=== PATIENT | female | born 1990 | race Caucasian/White ===

== ENCOUNTER 2019-03-04 14:27 | Emergency (ER) | payer MEDICARE, OTHER, MEDICAID, SELFPAY ==
[2019-03-04 14:33] VITALS: BP 154/96; PULSE 102; RESP 16; TEMP 36.6; O2SAT 98; BMI 57.6
--- NOTE | 2019-03-04 18:18 | ED_ITS ---
HPI - Skin/Abscess/Foreign Bdy General Chief complaint: Skin/Abscess/Foreign Body Stated complaint: rash under left arm pit Time Seen by Provider: 03/04/19 18:15 Source: patient Mode of arrival: Ambulatory Limitations: no limitations History of Present Illness HPI narrative: 28-year-old woman with a erythematous rash that developed under her left arm in the axilla. It's been present for number of days it's itchy not paretic no fevers. Related Data Previous Rx's Medication Instructions Recorded lamotrigine 150 mg PO BID 90 Days #0 07/18/11 nystatin 1 applictn TOP BID #30 gram 03/04/19 Allergies Allergy/AdvReac Type Severity Reaction Status Date / Time No Known Drug Allergies Allergy Verified 03/04/19 14:33 Review of Systems Review of Systems Narrative: Denies ? fever ? cough ? cold ? chills ? chest pain ? dyspnea ? orthopnea ? wheezing ? abdominal pain ? change to bowel or bladder habits ? nausea vomiting Mother with similar symptoms under her breast regularly Patient History Social History Smoking Status: Unknown if ever smoked Smoking Status: Unknown if ever smoked alcohol intake frequency: other Substance Use Type: does not use Exam Narrative Exam Narrative: General: Alert appropriate in no acute distress, morbidly obese Respiratory: Able to speak in full sentences, no obvious respiratory distress Skin: Moist axilla with erythematous rash in the folds consistent with Vivi Neurologic: Grossly intact no obvious asymmetries or abnormalities Psych, appropriate insight and affect, cooperative Initial Vital Signs Initial Vital Signs: Vital Signs Temperature 97.8 F 03/04/19 14:33 Pulse Rate 102 H 03/04/19 14:33 Respiratory Rate 16 03/04/19 14:33 Blood Pressure 154/96 H 03/04/19 14:33 Pulse Oximetry 98 03/04/19 14:33 Course Vital Signs Vital signs: Vital Signs - 8 hr 03/04/19 14:33 Temperature 97.8 F Pulse Rate 102 H Respiratory Rate 16 Blood Pressure 154/96 H Pulse Oximetry 98 Discharge Plan Departure Patient Disposition: Home Clinical Impression: Vivi infection Instructions: DI for Intertrigo Activity Restrictions/Additional Instructions: Thank you for waiting today. This rash is due to Vivi, yeast. Yeast growth anywhere there are moist falls that are warm. Using some nystatin powder after a shower and thoroughly cleaning the area will help clean up the rash. Doing all that you can't keep t he area as dry as possible will help prevent it from coming back. Again, thank you for the long wait. I hope you heal quickly Prescriptions: New nystatin 100,000 unit/gram powder 1 applictn TOP BID Qty: 30 RF: 2 No Action lamotrigine 150 MG tablet 150 mg PO BID 90 Days Qty: 0 RF: 3 Referrals: Carla Pace MD [Primary Care Provider] -
[2019-03-04 18:34] VITALS: PULSE 92; O2SAT 95
== END 2019-03-04 18:34 | disposition home or self-care (01) ==
PROVIDERS: Emergency Provider Emergency Medicine; PCP Internal Medicine
DX: B37.2 Candidiasis of skin and nail (principal)
CPT/HCPCS: 99281; 99283

== ENCOUNTER 2019-08-13 10:14 | Emergency (ER) | payer MEDICARE, OTHER, MEDICAID, SELFPAY ==
[2019-08-13 10:25] VITALS: BP 169/103; PULSE 116; RESP 20; TEMP 37.1; O2SAT 95; BMI 59.0
--- NOTE | 2019-08-13 11:14 | ED_ITS ---
HPI - Skin/Abscess/Foreign Bdy <Dottie Galvan PA-C - Last Filed: 08/13/19 19:14> General Chief complaint: Skin/Abscess/Foreign Body Stated complaint: rash and open wound on lower abdomen Time Seen by Provider: 08/13/19 10:56 Source: patient and family Mode of arrival: Family Vehicle Limitations: no limitations History of Present Illness HPI narrative: This is a morbidly obese developmentally disabled 29-year-old woman who presents to the emergency department with her mother; they are complaining of a open wound on the left side of her abdomen under the fold of her pannus. As well as a rash --patient and mother state that she chronically has a rash under her breast, in her armpits and on her belly (in the folds) which they treat with nystatin powder, however this is the 1st time they have seen an open wound. The patient states that she noticed yesterday morning. She says that it does not hurt. When asked if the patient feels like she normally has a fast heart rate her mother says that she does. Mother and patient denied that she has had fever, shortness of breath, nausea, vomiting, diarrhea, chills, body aches, increased fatigue, lack of appetite or any other symptoms. MD complaint: rash and abscess/boil Onset (ago): day(s) (Abscess 2 days) Tetanus up to date: unsure Severity: moderate Severity scale (1-10): 1 Exacerbating factors: palpation Context: other (Morbidly obese,) Associated symptoms: denies other symptoms Treatments prior to arrival: other (Nystatin cream) Related Data Previous Rx's Medication Instructions Recorded lamotrigine 150 mg PO BID 90 Days #0 07/18/11 nystatin 1 applictn TOP BID #30 gram 03/04/19 doxycycline hyclate 100 mg PO BID #20 cap MDD 200mg 08/13/19 Allergies Allergy/AdvReac Type Severity Reaction Status Date / Time No Known Drug Allergies Allergy Verified 03/04/19 14:33 Review of Systems <Dottie Galvan PA-C - Last Filed: 08/13/19 19:14> Review of Systems Narrative: GENERAL: Denies chills, fatigue, malaise, fever, sweats. HEENT: Denies sinus pain, ear pain, sore throat, difficulty swallowing, dizziness. RESPIRATORY: Denies dyspnea, cough, wheezing, hemoptysis, sputum. CARDIOVASCULAR: Denies chest pain, palpitations, orthopnea, edema, GASTROINTESTINAL: Denies nausea, vomiting, abdominal pain, diarrhea, constipation, melena. : Denies dysuria, frequency, incontinence, hematuria, urinary retention. MUSCULOSKELETAL: denies weakness, joint pain, or bony pain SKIN: Positive for chronic rash under her breasts, sometimes in her armpits and also in the folds of her thighs and under her pannus, positive for small open draining wound on the left side under her pannus Denies other rash, skin lesions, or other NEUROLOGIC: Denies weakness, headache, numbness, change in speech, confusion, seizures, incoordination. PSYCHIATRIC: No concerning psychosocial issues. 12 point review of systems is negative except for those stated above Patient History <Dottie Galvan PA-C - Last Filed: 08/13/19 19:14> Social History Smoking Status: Unknown if ever smoked Smoking Status: Unknown if ever smoked alcohol intake frequency: holidays/special occasions only Substance Use Type: does not use Exam <Dottie Galvan PA-C - Last Filed: 08/13/19 19:14> Narrative Exam Narrative: GENERAL: 29 year old morbidly obese developmentally delayed patient appears stated age. Well-nourished, well-developed patient, in mild distress. HEAD: Atraumatic. Normocephalic. EYES: Pupils equal round and reactive. Extraocular motions intact. No scleral icterus. No injection or drainage. ENT: Nose without bleeding, purulent drainage. Throat without erythema, tonsillar hypertrophy or exudate. Airway patent. NECK: Trachea midline. Non tender CARDIOVASCULAR: rapid rate and rhythm (106) without murmurs, gallops, or rubs. RESPIRATORY: Clear to auscultation. Breath sounds equal bilaterally. No wheezes, rales, or rhonchi. GASTROINTESTINAL: Abdomen protuberant with large pannus soft, non-tender, nondistended. EXTREMITIES: No edema or joint tenderness. BACK: Nontender without deformity or crepitance. No flank tenderness. NEURO: AOx3. SKIN: There is a candidal appearing (erythematous with satellite lesions) mil [id number] rash in the fold of the pannus; on the left side on the superior portion of the pannus there is a approximately 2 horizontal by 1 in vertical area that is firm and suggestive of a non fluctuant abscess with centralized (approximately 1 cm) opening and a mild amount of discharge that is pale yellowish in color . The entire area has a smell consistent with a candidal infection. The area around the opening is cleansed with Hibiclens and a bacterial culture swab is inserted into the opening; the depth of the abscess is probed in all directions and appears to be no deeper than 1/2 inch into the subcutaneous fatty tissue without any apparent tunneling. No other rash or erythema of visualized areas Initial Vital Signs Initial Vital Signs: Vital Signs Temperature 98.7 F 08/13/19 10:25 Pulse Rate 116 H 08/13/19 10:25 Respiratory Rate 08/13/19 10:25 Blood Pressure 169/103 H 08/13/19 10:25 Pulse Oximetry 95 08/13/19 10:25 <Rambo Mayo MD - Last Filed: 08/14/19 07:28> Initial Vital Signs Initial Vital Signs: Vital Signs Temperature 98.7 F 08/13/19 10:25 Pulse Rate 116 H 08/13/19 10:25 Respiratory Rate 08/13/19 10:25 Blood Pressure 169/103 H 08/13/19 10:25 Pulse Oximetry 95 08/13/19 10:25 Scores <Dottie Galvan PA-C - Last Filed: 08/13/19 19:14> GCS Giovani coma scale eye opening: Spontaneous Giovani coma scale verbal response: Orientated [place] coma scale motor response: Obey commands [place] coma scale total score: 15 Course <Dottie Galvan PA-C - Last Filed: 08/13/19 19:14> Orders Ordered: ED Orders 08/13/19 11:30 Wound Culture and Gram Stain Stat Vital Signs Vital signs: Vital Signs - 8 hr 08/13/19 11:50 Temperature 98.3 F Pulse Rate 104 H Respiratory Rate 19 Blood Pressure 179/97 H Pulse Oximetry 97 <Rambo Mayo MD - Last Filed: 08/14/19 07:28> Orders Ordered: ED Orders 08/13/19 11:30 Wound Culture and Gram Stain Stat Vital Signs Vital signs: Vital Signs - 8 hr 08/13/19 11:50 Temperature 98.3 F Pulse Rate 104 H Respiratory Rate 19 Blood Pressure 179/97 H Pulse Oximetry 97 [facility] - Skin/Abscess/Foreign Bdy <Dottie Galvan PA-C - Last Filed: 08/13/19 19:14> Differential Diagnosis Differential diagnosis: Likely abscess of skin or subcutaneous tissue, cellulitis and other (Systemic infection, candidiasis) Medical Records Attestation: I reviewed the patient's medical records. Lab Data Attestation: I reviewed the patient's lab results. [facility] Narrative Medical decision making narrative: This is a 29-year-old morbidly obese developmentally disabled woman who presented to the emergency department with her mother complaining of a ?hole? in her belly that was draining. Differential diagnoses considered included, candidiasis, abscess, cellulitis, sepsis While the patient was mildly tachycardic throughout the hospital stay, she had no other signs/symptoms suggestive of systemic infection, and I have low suspicion for this. Labs were not obtained. Ultrasound was considered to further characterize the abscess however I felt comfortable based on exam and bacterial swab/culture collection. That this draining abscess most likely does not invade anything other than subcutaneous fat. Bacterial culture pending at time of discharge. Given the patient's body habitus the chronic issues with candidiasis in the current draining abscess present in her subcutaneous fat tissue of her abdomen I do think that is warranted for her to see wound care for follow-up for this and to work with her to prevent similar such infections in the future. She was also prescribed antibiotics orally and advised to follow-up with her primary care physician in the next 1-3 days she and her mother were also provided with emergency return precautions. All questions were answered. Discharge Plan Departure Patient Disposition: Home Clinical Impression: Abscess, abdomen, Vivi albicans infection Discharge Date/Time: 08/13/19 12:17 Instructions: DI for Wound Infection, DI for Skin Abscess, Yeast Infection-Skin Activity Restrictions/Additional Instructions: Thank you for letting us to be part of your care in the emergency department today. There is no evidence of an emergent or life threatening illness at this time, but follow up with your doctor in 1-2 days is recommended nonetheless to continue to rule out serious underlying causes of your symptoms. Please call the office for an appointment. Please return to the Emergency Department for any worsening or persistent symptoms. Please take medications as directed. You have been prescribed doxycycline which she should take twice a day for 10 days, I have provided paper prescription for this. It is very important that he pay close attention to her symptoms, keep the area clean and dry and take her medications as directed. You can continue to use the nystatin powder in the adjacent areas. You will see that I have referred you to see your primary care doctor as well as a bioinformatics specialist and you can call them regarding setting up an appointment. If you do develop increasing pain, redness, heat in the area your abscess, and/or fever, chills, nausea, vomiting, diarrhea or increased fatigue or any other symptoms of concern do not hesitate to seek medical care immediately. Prescriptions: New doxycycline hyclate 100 mg capsule 100 mg PO BID MDD 200mg Qty: 20 RF: 0 No Action lamotrigine 150 MG tablet 150 mg PO BID 90 Days Qty: 0 RF: 3 nystatin 100,000 unit/gram powder 1 applictn TOP BID Qty: 30 RF: 2 Referrals: Gary Sanches MD [Physician] - (Draining abscess of pannus--would benefit from wound care) Carrol Tatum DO [Primary Care Provider] -
--- NOTE | 2019-08-13 11:45 | PC.NURSE ---
pT USES NYSTATIN FOR FUNGAL GROWTH TO ABD/PELVIC FOLDS
[2019-08-13 11:50] VITALS: BP 179/97; PULSE 104; RESP 19; TEMP 36.8; O2SAT 97
== END 2019-08-13 12:17 | disposition home or self-care (01) ==
PROVIDERS: Emergency Provider Student in an Organized Health Care Education/Training Program; PCP Family Medicine
DX: L02.211 Cutaneous abscess of abdominal wall (principal); B37.2 Candidiasis of skin and nail; E66.01 Morbid (severe) obesity due to excess calories
CPT/HCPCS: 87070; 87077; 87147; 87205; 99282

== ENCOUNTER → 2019-08-23 10:29 | Outpatient (CLI) | payer MEDICARE, OTHER, MEDICAID, SELFPAY | PROVIDERS: PCP Family Medicine; Referring Provider Family Medicine; Visit Provider Family Medicine | DX: Z48.00 Encounter for change or removal of nonsurgical wound dressing (principal); L30.4 Erythema intertrigo | CPT/HCPCS: 99203; 99213 ==

== ENCOUNTER 2019-11-21 12:14 | Emergency (ER) | payer MEDICARE, OTHER, MEDICAID, SELFPAY ==
[2019-11-21] VITALS (15 sets, daily range): BP systolic 135–176; BP diastolic 65–102; PULSE 86–104; RESP 18–19; TEMP 36.8; O2SAT 96–100; BMI 58.3
[2019-11-21] MEDS: PANTOPRAZOLE 40 MG VIAL IV (13:35)
[2019-11-21] MEDS: KETOROLAC 60 MG/2 ML VIAL 15 MG IV (13:35)
[2019-11-21] MEDS: SODIUM CHLORIDE 0.9% 1,000 ML 1000 ML IV (13:35)
[2019-11-21] MEDS: ONDANSETRON 4 MG/2 ML INJ IV (13:35)
--- NOTE | 2019-11-21 13:51 | ED_ITS ---
HPI - Nausea/Vomiting/Diarrhea <NELLIE Suárez - Last Filed: 11/21/19 18:03> General Chief complaint: Abdominal Pain Stated complaint: vomiting, lightheadedness Time Seen by Provider: 11/21/19 12:33 Source: patient Mode of arrival: Family Vehicle Limitations: no limitations History of Present Illness HPI Narrative: This is a 29-year-old female, nonsmoker, who has history of diabetes, hypertension, seizure disorder presents to ED with mother with chief complain of vomiting constantly since this morning with lightheadedness. Patient denies chest pain, breathing difficulty, or fainting episodes. Mother states she had vomited about 5 times this morning with coffee looking fluid. Patient had food and coffee this morning. Denies bright red blood or coffee- grounds emesis. She denies bright rectal bleeding or tarry stools. Patient reports generalized abdominal pain with this and rates as 4/10 and describes as cramping. He denies fever but mild chills. She denies urinary symptoms such as urgency, frequency, dysuria, or hematuria. Unsure of LMP and is on Depo shot an d usually does not get menses regularly. Patient denies unusual vaginal discharge or pelvic pain. Last bowel movement was today which was little loose but no diarrheas. Mother reports patient is currently taking metformin which was increased from 500 mg to 1000 mg 6 days ago. She had been having intermittent nausea and vomiting since September this year when she started taking metformin. Related Data Previous Rx's Medication Instructions Recorded lamotrigine 150 mg PO BID 90 Days #0 07/18/11 nystatin 1 applictn TOP BID #30 gram 03/04/19 doxycycline hyclate 100 mg PO BID #20 cap MDD 200mg 08/13/19 Allergies Allergy/AdvReac Type Severity Reaction Status Date / Time No Known Drug Allergies Allergy Verified 03/04/19 14:33 Review of Systems <NELLIE Suárez - Last Filed: 11/21/19 18:03> Review of Systems Narrative: General: Denies fever, (+) chills, fatigue, malaise, sweats. HEENT: Denies sinus pain, ear pain, sore throat, difficulty swallowing, (+) dizziness. Respiratory: Denies dyspnea, cough, wheezing, hemoptysis, sputum. Cardiovascular: Denies chest pain, palpitations, orthopnea, edema. Gastrointestinal: See HPI : Denies dysuria, frequency, incontinence, hematuria, urinary retention. Musculoskeletal: Denies weakness, joint pain or bony pain. Skin: Denies rash, skin lesions, or other. Neurologic: Denies weakness, headache, numbness, change in speech, confusion, seizures, incoordination. Psychiatric: No concerning psychosocial issues. 12-point review of systems is negative except for those stated above. Patient History <NELLIE Suárez - Last Filed: 11/21/19 18:03> Medical History Diabetes (Acute) Hypertension (Acute) Obese (Acute) Pilonidal cyst (Acute) Seizures (Acute) Surgical History History of ankle surgery (Acute) Social History Smoking Status: Unknown if ever smoked Smoking Status: Unknown if ever smoked alcohol intake frequency: holidays/special occasions only Substance Use Type: does not use Exam <NELLIE Suárez - Last Filed: 11/21/19 18:03> Narrative Exam Narrative: GEN: Alert, oriented x 3, well appearing and obese female in no acute distress. Head: Normal cephalic, atraumatic. No scalp or temporal tenderness, palpable mass or rash. EYES: Pupils are equal, round, and reactive to light and accommodation. Extraocular muscles are intact bilaterally. There is no subconjunctival hemorrhage, exudate and sclera non-icteric. ENT: Hearing grossly intact. Nose without bleeding, purulent discharge or deviation. Mucous membrane dry, no mucosal lesion. Throat without erythema, tonsillar hypertrophy or exudate. Uvula in midline, airway patent. Neck: Trachea in midline. No JVD, non-tender without lymphadenopathy. No masses or thyroid megaly. Supple, non-tender and no meningeal signs. CARDIAC: Normal regular rate and rhythm without murmurs, gallops, or rubs. No chest wall tenderness. No peripheral edema, cyanosis or pallor. Capillary refill is less than 2 seconds. RESPIRATORY: Lungs are clear to auscultate bilaterally. No cough, wheezes, rales, or rhonchi. No stridor, respiratory distress, increase work of breathing, or accessary muscle used. ABD: Abdomen obese, soft, tender to palpate in 4 quadrants and non-distended. No guarding or rebound tenderness to palpate. Bowel sounds are normal in all 4 quadrants. There is no palpable masses or organomegaly. EXT: Full painless ROM of all extremities with no loss of sensation, strength, effusion or edema. SKIN: Warm, dry, normal color for patient. No erythema, lesions or rash over visible areas. BACK: Nontender without deformity or crepitance. No flank tenderness. NEUROLOGICAL: Alert and oriented to place, time and person. Sensation and motor function intact bilaterally. No facial droops, dysphasia. PSYCHIATRIC: Good judgement and reason, without hallucinations, abnormal affect or abnormal behaviors during the examination. Patient is not suicidal. Initial Vital Signs Initial Vital Signs: Vital Signs Temperature 98.2 F 11/21/19 12:49 Pulse Rate 104 H 11/21/19 12:49 Respiratory Rate 18 11/21/19 12:49 Blood Pressure 176/102 H 11/21/19 12:49 Pulse Oximetry 100 11/21/19 12:49 <Carly Doran DO - Last Filed: 11/27/19 18:21> Initial Vital Signs Initial Vital Signs: Vital Signs Temperature 98.2 F 11/21/19 12:49 Pulse Rate 104 H 11/21/19 12:49 Respiratory Rate 18 11/21/19 12:49 Blood Pressure 176/102 H 11/21/19 12:49 Pulse Oximetry 100 11/21/19 12:49 Scores <NELLIE Suárez - Last Filed: 11/21/19 18:03> GCS Giovani coma scale eye opening: Spontaneous Giovani coma scale verbal response: Orientated Giovani coma scale motor response: Obey commands Giovani coma scale total score: 15 Course <NELLIE Suárez - Last Filed: 11/21/19 18:03> Orders Ordered: Discontinued Medications Sodium Chloride (Normal Saline 0.9%) 1,000 mls @ 1,000 mls/hr IV BOLUS ONE Stop: 11/21/19 14:12 Last Infusion: 11/21/19 14:35 Dose: 0 mls/hr Documented by: Admin: 11/21/19 13:35 Dose: 1,000 mls/hr Documented by: FRED Sodium Chloride (Normal Saline 0.9%) 1,000 mls @ 125 mls/hr IV CONT RENETTA Last Infusion: 11/21/19 18:01 Dose: 0 mls/hr Documented by: Admin: 11/21/19 16:09 Dose: 125 mls/hr Documented by: FRED Ketorolac Tromethamine (Toradol) 15 mg IV NOW ONE Stop: 11/21/19 13:15 Last Admin: 11/21/19 13:35 Dose: 15 mg Documented by: FRED Ondansetron HCl (Zofran) 4 mg IV NOW ONE Stop: 11/21/19 13:14 Last Admin: 11/21/19 13:35 Dose: 4 mg Documented by: FRED Ondansetron HCl (Zofran Odt Prepack) 1 bottle MISC SEEINSTR ONE Stop: 11/21/19 17:51 Last Admin: 11/21/19 18:03 Dose: 1 bottle Documented by: FRED Pantoprazole Sodium (Protonix) 40 mg IV NOW ONE Stop: 11/21/19 13:15 Last Admin: 11/21/19 13:35 Dose: 40 mg Documented by: FRED Reevaluation(s) Reevaluation #1: Patient reports abdominal pain improved and feels hungry. solids control technician Krysta came to inform as CT was done with IV contrast but does not appears to be contrast is in her system. Right arm IV site verified. Patient denies pain. No obvious swelling appreciated due to patient's large body habitus. No obvious coolness or redness noted. IV is flushing very well without any res istance. Cool pack applied in case patient has swelling. Will wait for CT results. Time: 15:50 Reevaluation #2: Patient was able to tolerate clear liquid and crackers without vomiting. Reports abdominal pain improved. No signs of extravasation of fluid on right arm. No swelling, redness, pain appreciated. Time: 17:54 Vital Signs Vital signs: Vital Signs - 8 hr 11/21/19 12:49 11/21/19 13:46 11/21/19 13:50 Temperature 98.2 F Pulse Rate 104 H 100 H 97 H Respiratory Rate 18 Blood Pressure 176/102 H 156/90 H Pulse Oximetry 100 97 99 11/21/19 13:51 11/21/19 14:00 11/21/19 14:30 Temperature Pulse Rate 92 H 95 H 87 Respiratory Rate Blood Pressure 156/90 H Pulse Oximetry 100 99 97 11/21/19 14:59 11/21/19 15:00 11/21/19 16:15 Temperature Pulse Rate 92 H 91 H 92 H Respiratory Rate 19 Blood Pressure 140/75 140/75 Pulse Oximetry 96 97 96 11/21/19 16:16 11/21/19 17:09 11/21/19 17:12 Temperature Pulse Rate 92 H 94 H 95 H Respiratory Rate Blood Pressure 140/67 146/65 H Pulse Oximetry 96 96 99 11/21/19 17:30 Temperature Pulse Rate 86 Respiratory Rate Blood Pressure Pulse Oximetry 96 <Carly Doran, - Last Filed: 11/27/19 18:21> Orders Ordered: Discontinued Medications Sodium Chloride (Normal Saline 0.9%) 1,000 mls @ 1,000 mls/hr IV BOLUS ONE Stop: 11/21/19 14:12 Last Infusion: 11/21/19 14:35 Dose: 0 mls/hr Documented by: Admin: 11/21/19 13:35 Dose: 1,000 mls/hr Documented by: FRED Sodium Chloride (Normal Saline 0.9%) 1,000 mls @ 125 mls/hr IV CONT RENETTA Last Infusion: 11/21/19 18:01 Dose: 0 mls/hr Documented by: Admin: 11/21/19 16:09 Dose: 125 mls/hr Documented by: FRED Ketorolac Tromethamine (Toradol) 15 mg IV NOW ONE Stop: 11/21/19 13:15 Last Admin: 11/21/19 13:35 Dose: 15 mg Documented by: FRED Ondansetron HCl (Zofran) 4 mg IV NOW ONE Stop: 11/21/19 13:14 Last Admin: 11/21/19 13:35 Dose: 4 mg Documented by: FRED Ondansetron HCl (Zofran Odt Prepack) 1 bottle MISC SEEINSTR ONE Stop: 11/21/19 17:51 Last Admin: 11/21/19 18:03 Dose: 1 bottle Documented by: FRED Pantoprazole Sodium (Protonix) 40 mg IV NOW ONE Stop: 11/21/19 13:15 Last Admin: 11/21/19 13:35 Dose: 40 mg Documented by: FRED Vital Signs Vital signs: Vital Signs - 8 hr 11/21/19 12:49 11/21/19 13:46 11/21/19 13:50 Temperature 98.2 F Pulse Rate 104 H 100 H 97 H Respiratory Rate 18 Blood Pressure 176/102 H 156/90 H Pulse Oximetry 100 97 99 11/21/19 13:51 11/21/19 14:00 11/21/19 14:30 Temperature Pulse Rate 92 H 95 H 87 Respiratory Rate Blood Pressure 156/90 H Pulse Oximetry 100 99 97 11/21/19 14:59 11/21/19 15:00 11/21/19 16:15 Temperature Pulse Rate 92 H 91 H 92 H Respiratory Rate 19 Blood Pressure 140/75 140/75 Pulse Oximetry 96 97 96 11/21/19 16:16 11/21/19 17:09 11/21/19 17:12 Temperature Pulse Rate 92 H 94 H 95 H Respiratory Rate Blood Pressure 140/67 146/65 H Pulse Oximetry 96 96 99 11/21/19 17:30 Temperature Pulse Rate 86 Respiratory Rate Blood Pressure Pulse Oximetry 96 MDM - Nausea/Vomiting/Diarrhea <NELLIE Suárez - Last Filed: 11/21/19 18:03> Differential Diagnosis Differential diagnosis: Likely gastroenteritis, drug-induced nausea and vomiting, dehydration and other (Pancreatitis) Medical Records Attestation: I reviewed the patient's medical records. Lab Data Attestation: I reviewed the patient's lab results. Result diagrams: 11/21/19 13:48 11/21/19 13:48 Labs: Lab Results 11/21/19 11/21/19 11/21/19 Range/Units 13:48 13:48 13:48 WBC 12.1 H (4.5-11.0) X10^3/uL RBC 5.25 H (4.0-5.2) X10^6/uL Hgb 14.9 (12.0-16.0) g/dL Hct 44.1 (36-46) % MCV 84.1 (80-100) fL MCH 28.4 (26-34) PG MCHC 33.7 (30-36) % RDW 14.0 (11.6-14.8) % Plt Count 407 H (150-400) X10^3/uL Neut % (Auto) 83.4 H (50-75) % Lymph % (Auto) 11.0 L (25-40) % [place] % (Auto) 4.4 (3-14) % Eos % (Auto) 0.6 L (2-4) % Baso % (Auto) 0.6 (0-2) % Neut # (Auto) 39616 H (8695-8304) /uL Lymph # (Auto) 1300 (5269-7325) /uL [place] # (Auto) 500 (0-900) /uL Eos # (Auto) 100 (0-450) /uL Baso # (Auto) 100 (0-100) /uL Sodium 136 L (137-145) mmol/L Potassium 5.0 (3.4-5.1) mmol/L Chloride 102 (98-107) mmol/L Carbon Dioxide 28 (22-32) mmol/L BUN 8 (7-17) mg/dL Creatinine 0.46 L (0.52-1.04) mg/dL Estimated GFR > 60.0 (>60) mL/min BUN/Creatinine Ratio 17.4 (6-22) Glucose 249 H (70-100) mg/dL Lactate 1.8 (0.7-2.1) mmol/L Calcium 9.7 (8.4-10.2) mg/dL Total Bilirubin 0.6 (0.2-1.3) mg/dL AST 32 (14-36) IU/L ALT 39 H (<35) IU/L Alkaline Phosphatase 114 (38-126) U/L Total Protein 8.2 (6.3-8.2) g/dL Albumin 4.4 (3.5-5.0) g/dL Globulin 3.8 (1.7-4.1) g/dL Albumin/Globulin Ratio 1.2 (1.0-2.8) Lipase 88 (23-300) U/L Serum , Qual (Negative) Urine RBC (0-5/HPF) Urine WBC (0-5/HPF) Ur Squamous Epith Cells (0-5/HPF) Amorphous Sediment Urine Bacteria (None) Urine Mucus (Negative) Ur Culture Indicated? 11/21/19 11/21/19 Range/Units 13:48 16:55 WBC (4.5-11.0) X10^3/uL RBC (4.0-5.2) X10^6/uL Hgb (12.0-16.0) g/dL Hct (36-46) % MCV (80-100) fL MCH (26-34) PG MCHC (30-36) % RDW (11.6-14.8) % Plt Count (150-400) X10^3/uL Neut % (Auto) (50-75) % Lymph % (Auto) (25-40) % [place] % (Auto) (3-14) % Eos % (Auto) (2-4) % Baso % (Auto) (0-2) % Neut # (Auto) (6332-4104) /uL Lymph # (Auto) (8572-1908) /uL [place] # (Auto) (0-900) /uL Eos # (Auto) (0-450) /uL Baso # (Auto) (0-100) /uL Sodium (137-145) mmol/L Potassium (3.4-5.1) mmol/L Chloride (98-107) mmol/L Carbon Dioxide (22-32) mmol/L BUN (7-17) mg/dL Creatinine (0.52-1.04) mg/dL Estimated GFR (>60) mL/min BUN/Creatinine Ratio (6-22) Glucose (70-100) mg/dL Lactate (0.7-2.1) mmol/L Calcium (8.4-10.2) mg/dL Total Bilirubin (0.2-1.3) mg/dL AST (14-36) IU/L ALT (<35) IU/L Alkaline Phosphatase (38-126) U/L Total Protein (6.3-8.2) g/dL Albumin (3.5-5.0) g/dL Globulin (1.7-4.1) g/dL Albumin/Globulin Ratio (1.0-2.8) Lipase (23-300) U/L Serum , Qual Negative (Negative) Urine RBC None seen (0-5/HPF) Urine WBC 5-10/hpf H (0-5/HPF) Ur Squamous Epith Cells 5-10 /hpf H (0-5/HPF) Amorphous Sediment 2+ Urine Bacteria Many (>30) H (None) Urine Mucus 1+ H (Negative) Ur Culture Indicated? Specimen cultured Point of Care Testing Glucose POC 256 Urine Dip Bedside Urine Glucose 250 mg/dl Bedside Urine Bilirubin - Negative Bedside Urine Ketone - Negative Urine Specific [place] 1.020 Bedside Urine Occult Blood - Negative Bedside Urine pH 6.0 Bedside Urine Protein +/- 15 Bedside Urine Urobilinogen - Negative Bedside Urine Nitrite - Negative Bedside Urine Leukocytes - Negative Esterase Imaging Data CT scan - abdomen/pelvis: Radiologist's Impression: [address] [address] [address] Scan Report Signed Patient: Ana Maria Stanley GMR#: [id number] : 1990Acct:[id number] Age/Sex: 29 / FDate of Service: 11/21/19 Loc: ED Accession Number: [id number] Procedure: CT abdomen pelvis w con Ordering Provider: Arley Golden PROCEDURE: CT ABDOMEN PELVIS W CON INDICATIONS: generalized abdominal pain and n/v TECHNIQUE: After the administration of intravenous contrast, 5 mm thick sections acquired from the diaphragm to the symphysis. 5 mm coronal and sagittal reformats were acquired. For radiation dose reduction, the following was used: automated exposure control, adjustment of mA and/or kV according to patient size. COMPARISON: [facility], CT, ABDOMEN/PELVIS WITH CONTRAST, 04/07/2010, 15:21. FINDINGS: Image quality: Excellent. ABDOMEN: Lung bases: There is minimal dependent atelectasis. Heart size is normal. Solid organs: Evaluation of the liver demonstrates no focal hepatic lesions. The gallbladder appears within normal limits without calcified gallstones. Biliary system is non-dilated. Pancreas enhances normally. No peripancreatic fat stranding or fluid collections. No pancreatic duct dilatation. The spleen is enlarged, measuring up to 15.8 cm. No adrenal nodules. Kidneys demonstrate no hydronephrosis. Peritoneum and bowel: Bowel loops demonstrate normal wall thickness and caliber. The appendix is normal in appearance. There is colonic diverticulosis without acute diverticulitis. No free fluid or air. Nodes and vessels: No retroperitoneal or mesenteric adenopathy by size criteria. Aorta and inferior vena cava are normal in size. Miscellaneous: No ventral hernias. PELVIS: Genitourinary: Bladder wall thickness is normal. Miscellaneous: No inguinal hernias or adenopathy. Bones: No suspicious bony lesions. No vertebral body compression fractures. IMPRESSION: 1. No acute intra-abdominal abnormality. 2. Nonspecific splenomegaly may be constitutional. 3. Colonic diverticulosis without acute diverticulitis. Dictated by: Carl Prince M.D. on 11/21/2019 at 14:45 Approved by: Carl Prince M.D. on 11/21/2019 at 14:49 [facility] Narrative Medical decision making narrative: This is a 29-year-old female who presents to ED with generalized abdominal pain and nausea and vomiting today. Patient is currently taking metformin which has been increased from 500 mg b.i.d. dose to 1000 mg 5 days ago. Patient has been having intermittent abdominal pain with nausea since she started metformin according to mother. Patient is nontoxic appearing. Abdominal physical exam appreciated soft, nondistended, generalized abdominal discomfort to palpate. No rebound tenderness or peritoneal signs. Patient appears to be nontoxic. She is afebrile but slightly tachycardia. Patient was medicated with IV fluid, Zofran and Toradol initially. Patient was reassessed and reports slightly improved symptoms but abdominal pain was not resolved. Given slightly elevated white count of 12.1 with ongoing abdominal pain, abdominal/pelvis CT was ordered and obtained. Chemistry test shows elevated glucose of 249 with ALT of 39. Normal lipase, negative serum test. Very mild hyponatremia of 136. CT show no acute intra-abdominal abnormality. There's colonic diverticulosis without acute diverticulitis. There is nonspecific splenomegaly, may be constitutional. After IV fluid infusion, she was able to provide urine sample. POC urine test does not show nitrites or urine leuks. Microscopic urine test shows postivive for mucus, squamous epithelia cells, urine WBC of 5-10/hpf and many bacteria. Urine culture is pending. In shared decision making, will wait for the urine culture test whether patient needs antibiotic medication treatments. Patient felt improved and was able to tolerate liquid and crackers before discharged to home. Heart rate improved to in 80s. Patient discharged to home with prepack of Zofran. Patient's nausea vomiting may related to recent increase metformin to 1000 mg b.i.d.. We discussed return precautions and patient and mother verbalized understanding. Patient advised to take bland diet for next couple of days to try to hydrate well. No further questions at this time. <Carly Colton Doran, DO - Last Filed: 11/27/19 18:21> Lab Data Labs: Lab Results 11/21/19 11/21/19 11/21/19 Range/Units 13:48 13:48 13:48 WBC 12.1 H (4.5-11.0) X10^3/uL RBC 5.25 H (4.0-5.2) X10^6/uL Hgb 14.9 (12.0-16.0) g/dL Hct 44.1 (36-46) % MCV 84.1 (80-100) fL MCH 28.4 (26-34) PG MCHC 33.7 (30-36) % RDW 14.0 (11.6-14.8) % Plt Count 407 H (150-400) X10^3/uL Neut % (Auto) 83.4 H (50-75) % Lymph % (Auto) 11.0 L (25-40) % [place] % (Auto) 4.4 (3-14) % Eos % (Auto) 0.6 L (2-4) % Baso % (Auto) 0.6 (0-2) % Neut # (Auto) 91178 H (3552-7511) /uL Lymph # (Auto) 1300 (8282-4158) /uL [place] # (Auto) 500 (0-900) /uL Eos # (Auto) 100 (0-450) /uL Baso # (Auto) 100 (0-100) /uL Sodium 136 L (137-145) mmol/L Potassium 5.0 (3.4-5.1) mmol/L Chloride 102 (98-107) mmol/L Carbon Dioxide 28 (22-32) mmol/L BUN 8 (7-17) mg/dL Creatinine 0.46 L (0.52-1.04) mg/dL Estimated GFR > 60.0 (>60) mL/min BUN/Creatinine Ratio 17.4 (6-22) Glucose 249 H (70-100) mg/dL Lactate 1.8 (0.7-2.1) mmol/L Calcium 9.7 (8.4-10.2) mg/dL Total Bilirubin 0.6 (0.2-1.3) mg/dL AST 32 (14-36) IU/L ALT 39 H (<35) IU/L Alkaline Phosphatase 114 (38-126) U/L Total Protein 8.2 (6.3-8.2) g/dL Albumin 4.4 (3.5-5.0) g/dL Globulin 3.8 (1.7-4.1) g/dL Albumin/Globulin Ratio 1.2 (1.0-2.8) Lipase 88 (23-300) U/L Serum , Qual (Negative) Urine RBC (0-5/HPF) Urine WBC (0-5/HPF) Ur Squamous Epith Cells (0-5/HPF) Amorphous Sediment Urine Bacteria (None) Urine Mucus (Negative) Ur Culture Indicated? 11/21/19 11/21/19 Range/Units 13:48 16:55 WBC (4.5-11.0) X10^3/uL RBC (4.0-5.2) X10^6/uL Hgb (12.0-16.0) g/dL Hct (36-46) % MCV (80-100) fL MCH (26-34) PG MCHC (30-36) % RDW (11.6-14.8) % Plt Count (150-400) X10^3/uL Neut % (Auto) (50-75) % Lymph % (Auto) (25-40) % [place] % (Auto) (3-14) % Eos % (Auto) (2-4) % Baso % (Auto) (0-2) % Neut # (Auto) (2416-7218) /uL Lymph # (Auto) (2455-9234) /uL [place] # (Auto) (0-900) /uL Eos # (Auto) (0-450) /uL Baso # (Auto) (0-100) /uL Sodium (137-145) mmol/L Potassium (3.4-5.1) mmol/L Chloride (98-107) mmol/L Carbon Dioxide (22-32) mmol/L BUN (7-17) mg/dL Creatinine (0.52-1.04) mg/dL Estimated GFR (>60) mL/min BUN/Creatinine Ratio (6-22) Glucose (70-100) mg/dL Lactate (0.7-2.1) mmol/L Calcium (8.4-10.2) mg/dL Total Bilirubin (0.2-1.3) mg/dL AST (14-36) IU/L ALT (<35) IU/L Alkaline Phosphatase (38-126) U/L Total Protein (6.3-8.2) g/dL Albumin (3.5-5.0) g/dL Globulin (1.7-4.1) g/dL Albumin/Globulin Ratio (1.0-2.8) Lipase (23-300) U/L Serum , Qual Negative (Negative) Urine RBC None seen (0-5/HPF) Urine WBC 5-10/hpf H (0-5/HPF) Ur Squamous Epith Cells 5-10 /hpf H (0-5/HPF) Amorphous Sediment 2+ Urine Bacteria Many (>30) H (None) Urine Mucus 1+ H (Negative) Ur Culture Indicated? Specimen cultured Point of Care Testing Glucose POC 256 Urine Dip Bedside Urine Glucose 250 mg/dl Bedside Urine Bilirubin - Negative Bedside Urine Ketone - Negative Urine Specific [place] 1.020 Bedside Urine Occult Blood - Negative Bedside Urine pH 6.0 Bedside Urine Protein +/- 15 Bedside Urine Urobilinogen - Negative Bedside Urine Nitrite - Negative Bedside Urine Leukocytes - Negative Esterase Discharge Plan Departure Patient Disposition: Home Clinical Impression: Nausea & vomiting Qualifiers: Vomiting type: unspecified Vomiting Intractability: non-intractable Qualified Code(s): R11.2 - Nausea with vomiting, unspecified Abdominal pain Qualifiers: Abdominal location: generalized Qualified Code(s): R10.84 - Generalized abdominal pain Discharge Date/Time: 11/21/19 18:11 Instructions: DI for Abdominal Pain-Adult, Nausea and Vomiting-Adult Activity Restrictions/Additional Instructions: You have been diagnosed with [nausea and vomiting, abdominal pain. Very mild elevated white count with normal lactate today. Chemistry test shows slightly elevated glucose of 249 with mild elevation in ALT of 39. Urine culture is pending. Urine test shows you may have infection or it was of contaminated sample. You will receive a phone call from us if you require antibiotic medication treatment. You were medicated with IV fluid, Zofran, Toradol which helped with your symptoms. Abdominal/pelvis CT without acute findings today. The nausea and vomiting may related to recent increased metformin and usually this improves. Please monitor right arm for any pain, swelling, redness and if this occurs please return to ED for an evaluation. Otherwise you can use warm pack on affected arm.]. What to do: *Take your medications as directed. Please take over the counter ibuprofen or Tylenol as needed for discomfort. You can take Zofran as needed for nausea. *Follow up with your primary care provider in 2-3 days, call for an appointment. Let them know you were seen in the ED and that we asked you to be seen in follow up. *Return to ED if you have any new, worsening, or concerning symptoms, such as [worsening pain, fever, chills, unable to tolerate fluids, chest pain, breathing difficulty, or any acute concerns]. Prescriptions: No Action lamotrigine 150 MG tablet 150 mg PO BID 90 Days Qty: 0 RF: 3 nystatin 100,000 unit/gram powder 1 applictn TOP BID Qty: 30 RF: 2 doxycycline hyclate 100 mg capsule 100 mg PO BID MDD 200mg Qty: 20 RF: 0 Referrals: Carrol Tatum DO [Primary Care Provider] - <Carly Doran DO - Last Filed: 11/27/19 18:21> Cosign ED Attending Cosjasonature Attestation: I was immediately available in the department for consultation. This documentation has been reviewed. Supervised by Carly Doran DO
[2019-11-21 14:01] LABS: Add Manual Diff / Slide Review NO; Basophils Absolute Auto 100 /uL (0-100); Basophils Percent Auto 0.6 % (0-2); Eosinophils Absolute Auto 100 /uL (0-450); Eosinophils Percent Auto 0.6 % (2-4); Hematocrit 44.1 % (36-46); Hemoglobin 14.9 g/dL (12.0-16.0); Lymphocytes Absolute Auto 1300 /uL (1100-4500); Mean Corpuscular HGB Conc 33.7 % (30-36); Mean Corpuscular Hemoglobin 28.4 PG (26-34); Mean Corpuscular Volume 84.1 fL (80-100); Monocytes Absolute Auto 500 /uL (0-900); Monocytes Percent Auto 4.4 % (3-14); Neutrophils Absolute Auto 10100 /uL (1500-7000); Neutrophils Percent Auto 83.4 % (50-75); Platelet Count 407 X10^3/uL (150-400); Red Blood Cell Count 5.25 X10^6/uL (4.0-5.2); White Blood Cell Count 12.1 X10^3/uL (4.5-11.0)
[2019-11-21 14:14] LABS: Lactate (Lactic Acid) 1.8 mmol/L (0.7-2.1)
[2019-11-21 14:15] LABS: Alanine Aminotransferase 39 IU/L (<35); Albumin 4.4 g/dL (3.5-5.0); Albumin Globulin Ratio 1.2 (1.0-2.8); Alkaline Phosphatase 114 U/L (38-126); Aspartate Aminotransferase 32 IU/L (14-36); BUN Creatinine Ratio 17.4 (6-22); Bilirubin Total 0.6 mg/dL (0.2-1.3); Blood Urea Nitrogen 8 mg/dL (7-17); Calcium 9.7 mg/dL (8.4-10.2); Carbon Dioxide 28 mmol/L (22-32); Chloride 102 mmol/L (98-107); Estimated Glomerular Filt Rate > 60.0 mL/min (>60); Globulin 3.8 g/dL (1.7-4.1); Glucose 249 mg/dL (70-100); HEMOLYSIS 18 (0-50); Lipase 88 U/L (23-300); Sodium 136 mmol/L (137-145); Total Protein 8.2 g/dL (6.3-8.2)
--- NOTE | 2019-11-21 14:58 | DI.CT.S_ITS ---
PROCEDURE: CT ABDOMEN PELVIS W CON INDICATIONS: generalized abdominal pain and n/v TECHNIQUE: After the administration of intravenous contrast, 5 mm thick sections acquired from the diaphragm to the symphysis. 5 mm coronal and sagittal reformats were acquired. For radiation dose reduction, the following was used: automated exposure control, adjustment of mA and/or kV according to patient size. COMPARISON: [facility], CT, ABDOMEN/PELVIS WITH CONTRAST, 04/07/2010, 15:21. FINDINGS: Image quality: Excellent. ABDOMEN: Lung bases: There is minimal dependent atelectasis. Heart size is normal. Solid organs: Evaluation of the liver demonstrates no focal hepatic lesions. The gallbladder appears within normal limits without calcified gallstones. Biliary system is non-dilated. Pancreas enhances normally. No peripancreatic fat stranding or fluid collections. No pancreatic duct dilatation. The spleen is enlarged, measuring up to 15.8 cm. No adrenal nodules. Kidneys demonstrate no hydronephrosis. Peritoneum and bowel: Bowel loops demonstrate normal wall thickness and caliber. The appendix is normal in appearance. There is colonic diverticulosis without acute diverticulitis. No free fluid or air. Nodes and vessels: No retroperitoneal or mesenteric adenopathy by size criteria. Aorta and inferior vena cava are normal in size. Miscellaneous: No ventral hernias. PELVIS: Genitourinary: Bladder wall thickness is normal. Miscellaneous: No inguinal hernias or adenopathy. Bones: No suspicious bony lesions. No vertebral body compression fractures. IMPRESSION: 1. No acute intra-abdominal abnormality. 2. Nonspecific splenomegaly may be constitutional. 3. Colonic diverticulosis without acute diverticulitis. Dictated by: Carl Prince M.D. on 11/21/2019 at 14:45 Approved by: Carl Prince M.D. on 11/21/2019 at 14:49
[2019-11-21 15:15] LABS: Pregnancy Test Serum,Qual Negative (Negative)
[2019-11-21] MEDS: SODIUM CHLORIDE 0.9% 1,000 ML 125 ML IV (16:09)
[2019-11-21 17:10] LABS: RBC Urine None Seen (0-5/HPF)
[2019-11-21 17:19] LABS: Amorphous Sediment Urine 2+; Bacteria Urine Many (>30); Mucus Urine 1+ (Negative); Squamous Epithelial Cell Urine 5-10 /HPF (0-5/HPF); WBC Urine 5-10/HPF (0-5/HPF)
[2019-11-21 17:20] LABS: Culture Indicated Urine Specimen Cultured
[2019-11-21] MEDS: ONDANSETRON 4 MG ODT PREPACK 1 BOTTLE MISC (18:03)
== END 2019-11-21 18:11 | disposition home or self-care (01) ==
PROVIDERS: Emergency Provider Nurse Practitioner Family; PCP Family Medicine
DX: R10.84 Generalized abdominal pain (principal); R11.2 Nausea with vomiting, unspecified; R42 Dizziness and giddiness; R10.9 Unspecified abdominal pain; D72.829 Elevated white blood cell count, unspecified
CPT/HCPCS: 36415; 74177; 80053; 81003; 81015; 82962; 83605; 83690; 84703; 85025; 87086; 96361; 96374; 96375; 99284; C9113; J1885; J2405; Q9967

== ENCOUNTER 2024-04-13 20:03 | Emergency (ER) | payer MEDICARE, OTHER, SELFPAY ==
[2024-04-13 20:17] VITALS: BP 151/69; PULSE 110; RESP 18; TEMP 36.8; O2SAT 96; BMI 48.4
[2024-04-13 21:09] LABS: RBC Urine 0-1/HPF (0-5/HPF); Urine Volume 10mL (spun)
[2024-04-13 21:10] LABS: Bacteria Urine Many (>30); Squamous Epithelial Cell Urine 1-5 /HPF (0-5/HPF); WBC Urine 1-5/HPF (0-5/HPF)
[2024-04-13 21:12] LABS: Culture Indicated Urine Specimen Cultured; Uric Acid Crystals Urine Few
[2024-04-13 23:03] VITALS: BP 133/60; PULSE 101; RESP 20; O2SAT 96
[2024-04-13 23:30] VITALS: BP 137/63; PULSE 93; RESP 20; O2SAT 95
--- NOTE | 2024-04-14 01:01 | ED.AMS ---
HPI - Altered Mental Status General Chief Complaint: Altered Mental Status Stated Complaint: AMS x3 days Time Seen by Provider: 04/14/24 00:33 Source: patient and family Mode of arrival: Ambulatory History of Present Illness HPI narrative: Patient is a 34-year-old female who has history of disability [id number] diabetes presenting to day with abnormal behavior. Mom reports that for the last couple of days she has not been behaving herself. She but mom a birthday present that mom thought was atypical for her. She thought she has been staring off into space. No fever chills nausea vomiting. No cough no sore throat. They have now been in the emergency department for 4 hours patient would like to go home. Patient actually has no complaints and feels fine. Related Data Previous Rx's Medication Instructions Recorded lamotrigine 150 mg tablet 150 mg PO BID 90 days ##0 07/18/11 nystatin 100,000 unit/gram topical 1 applictn topical BID #30 grams 03/04/19 powder doxycycline hyclate 100 mg capsule 100 mg PO BID abscess #20 caps 08/13/19 cephalexin 500 mg capsule 500 mg PO BID 5 days #10 caps 04/14/24 Allergies Allergy/AdvReac Type Severity Reaction Status Date / Time No Known Drug Allergies Allergy Verified 03/04/19 14:33 Patient History Medical History (Updated 04/14/24 @ 01:17 by Gerda Cervantes DO) Pilonidal cyst Diabetes Obese Hypertension Seizures Surgical History History of ankle surgery Social History Smoking Status: Unknown if ever smoked Smoking Status: Unknown if ever smoked alcohol intake frequency: holidays/special occasions only Exam Initial Vital Signs Initial Vital Signs: Vital Signs Temperature 98.3 F 04/13/24 20:17 Pulse Rate 110 H 04/13/24 20:17 Respiratory Rate 18 04/13/24 20:17 Blood Pressure 151/69 H 04/13/24 20:17 Pulse Oximetry 96 04/13/24 20:17 Oxygen Delivery Method Room Air 04/13/24 20:17 GENERAL: Alert well-appearing 34-year-old female HEENT: Head atraumatic,EOMI, pupils reactive, face symmetric, moist mucous membranes CARDIOVASCULAR: Regular rate and rhythm without murmurs, rubs or gallops. RESPIRATORY: Breath sounds equal bilaterally, no wheezes rales or rhonchi. ABDOMEN: Soft, nontender. Normoactive bowel sounds all 4 quadrants. No guarding or rebound. EXTREMITIES: Normal range of motion, no clubbing or edema. Neurovascularly intact NEUROLOGICAL: Alert and oriented x4.Normal gait and speech. Cranial nerves II through XII grossly intact. SKIN: Warm, dry, no laceration, no petechiae, no rashes or lesions. Course Orders Ordered: ED Orders 04/13/24 20:41 Urine Culture Stat Urine Microscopic Stat Discontinued Medications Cephalexin HCl (Cephalexin 250 Mg Capsule) 500 mg PO NOW ONE Stop: 04/14/24 01:12 Last Admin: 04/14/24 01:19 Dose: 500 mg Documented By: DORCAS Vital Signs Vital signs: Vital Signs - 8 hr 04/13/24 20:17 04/13/24 23:03 04/13/24 23:03 Temperature 98.3 F Pulse Rate 110 H 101 H Respiratory Rate 18 20 Blood Pressure 151/69 H 133/60 Pulse Oximetry 96 96 Oxygen Delivery Method Room Air Room Air 04/13/24 23:30 04/13/24 23:30 Temperature Pulse Rate 93 H Respiratory Rate 20 Blood Pressure 137/63 Pulse Oximetry 95 Oxygen Delivery Method Room Air MDM - Altered Mental Status Lab Data Labs: Lab Results 04/13/24 Range/Units 20:41 Urine RBC 0-1/hpf (0-5/HPF) Urine WBC 1-5/hpf (0-5/HPF) Ur Squamous Epith Cells 1-5 /hpf (0-5/HPF) Uric Acid Crystals Few H (None) Urine Bacteria Many (>30) H (None) Ur Culture Indicated? Specimen cultured Vol Urine Centrifuged 10ml (spun) Point of Care Testing Test Results Negative Glucose POC 147 Urine Dip Bedside Urine Glucose 1000 mg/dl Bedside Urine Bilirubin - Negative Bedside Urine Ketone ++ 40 Urine Specific [place] 1.015 Bedside Urine Occult Blood + Bedside Urine pH 5.5 Bedside Urine Protein +/- 15 Bedside Urine Urobilinogen - Negative Bedside Urine Nitrite - Negative Bedside Urine Leukocytes + 70 Esterase MDM Narrative Medical decision making narrative: Patient 34-year-old female presenting today with what mother describes as abnormal behavior. Mostly describing her being a little loose staring off into space at times but no obvious shaking. She has not had any fever nausea vomiting. Urinalysis is positive for bacteria and leukocytes. We will go ahead and treat for UTI. Patient initially was little tachycardic however heart rate has come down without any sort of intervention. Blood pressure remained stable. Mom is interested in doing blood work however patient is refusing. At this time agreeable for antibiotic treatment see if there is improvement if not may require further blood work. Her exam is fairly benign breath sounds are clear abdomen is soft. Overall reassuring Discharge Plan Departure Patient Disposition: Home Clinical Impression: UTI (urinary tract infection) Instructions: DI for Urinary Tract Infection (UTI) Activity Restrictions/Additional Instructions: *You have been diagnosed with UTI *What to do: At this time please give antibiotics to 3 days to see if there is any kind of improvement.. May require further evaluation and blood work *Continue to take medications as directed Keflex 500 mg twice a day for 5 days *Follow up with your primary care provider in 2-3 days or call [phone] *Return to ER if you should have increasing confusion fever nausea vomiting or any new, worsening or concerning symptoms Prescriptions: New cephalexin 500 mg capsule 500 mg PO BID 5 Days Qty: 10 0RF No Action lamotrigine 150 MG tablet 150 mg PO BID 90 Days Qty: 0 3RF nystatin 100,000 unit/gram powder 1 applictn TOP BID Qty: 30 2RF doxycycline hyclate 100 mg capsule 100 mg PO BID MDD 200mg Qty: 20 0RF Referrals: ProviderDinah [Primary Care Provider] - Stand Alone Forms: Patient Portal/API/Survey
[2024-04-14] MEDS: cephALEXin 250 MG CAPSULE 500 MG PO (01:19)
[2024-04-14 01:22] VITALS: BP 134/70; PULSE 103; RESP 18; O2SAT 95
== END 2024-04-14 01:25 | disposition home or self-care (01) ==
PROVIDERS: Emergency Provider Emergency Medicine
DX: N39.0 Urinary tract infection, site not specified (principal)
CPT/HCPCS: 81003; 81015; 81025; 82962; 87077; 87086; 87147; 99283

== ENCOUNTER 2024-07-24 14:18 | Emergency (ER) | payer MEDICARE, OTHER, SELFPAY ==
[2024-07-24 14:25] VITALS: BP 134/67; PULSE 100; RESP 18; TEMP 37; O2SAT 95; BMI 46.2
--- NOTE | 2024-07-24 16:00 | ED.RECABL ---
HPI - Recheck/Abnormal Lab/Rx General Chief Complaint: Recheck/Abnormal Lab/Rx Stated Complaint: Feel Poisoned/Like Something Under Skin Time Seen by Provider: 07/24/24 15:46 Source: patient and family Mode of arrival: Ambulatory History of Present Illness HPI narrative: 34-year-old female non-insulin diabetic presents today saying that she feels something is in her and that she is having itching and burning when she urinates that started today. Patient denies fever chills body aches sore throat nausea vomiting diarrhea constipation blood in the urine or stool or vaginal discharge. Other than what is stated 14 point review of system is negative. Related Data Previous Rx's ?Medication ?Instructions ?Recorded lamotrigine 150 mg tablet 150 mg PO BID 90 days ##0 07/18/11 nystatin 100,000 unit/gram topical 1 applictn topical BID #30 grams 03/04/19 powder doxycycline hyclate 100 mg capsule 100 mg PO BID abscess #20 caps 08/13/19 Allergies Allergy/AdvReac Type Severity Reaction Status Date / Time No Known Drug Allergies Allergy Verified 07/24/24 14:25 Review of Systems Review of Systems ROS Unobtainable: All systems reviewed & are unremarkable except as noted in HPI and below Patient History Medical History (Updated 07/24/24 @ 16:18 by Rambo Tavarez DO) Pilonidal cyst Diabetes Obese Hypertension Seizures Surgical History History of ankle surgery alcohol intake frequency: holidays/special occasions only Exam Narrative Exam Narrative: GENERAL: [34] year old patient appears stated age. Well-developed patient, in mild distress. HEAD: Atraumatic. Normocephalic. EYES: Pupils equal round and reactive. Extraocular motions intact. No scleral icterus. No injection or drainage. ENT: Nose without bleeding, purulent drainage. Throat without erythema, tonsillar hypertrophy or exudate. Airway patent. NECK: Trachea midline. Non tender CARDIOVASCULAR: Regular rate and rhythm without murmurs, gallops, or rubs. RESPIRATORY: Clear to auscultation. Breath sounds equal bilaterally. No wheezes, rales, or rhonchi. GASTROINTESTINAL: Abdomen soft, non-tender, nondistended. EXTREMITIES: No edema or joint tenderness. BACK: Nontender without deformity or crepitance. No flank tenderness. NEURO: AOx3. SKIN: No rash or erythema of visible areas Initial Vital Signs Initial Vital Signs: Vital Signs Temperature 98.6 F 07/24/24 14:25 Pulse Rate 100 H 07/24/24 14:25 Respiratory Rate 18 07/24/24 14:25 Blood Pressure 134/67 07/24/24 14:25 Pulse Oximetry 95 07/24/24 14:25 Oxygen Delivery Method Room Air 07/24/24 14:25 Course Vital Signs Vital signs: Vital Signs - 8 hr 07/24/24 14:25 07/24/24 16:06 07/24/24 16:06 Temperature 98.6 F Pulse Rate 100 H 98 H Respiratory Rate 18 16 Blood Pressure 134/67 128/59 L Pulse Oximetry 95 96 Oxygen Delivery Method Room Air MDM - Recheck/Abnormal Lab/Rx Lab Data Labs: Point of Care Testing Glucose POC 222 Urine Dip Bedside Urine Glucose 1000 mg/dl Bedside Urine Bilirubin - Negative Bedside Urine Ketone - Negative Urine Specific [place] 1.020 Bedside Urine Occult Blood - Negative Bedside Urine pH 6.0 Bedside Urine Protein - Negative Bedside Urine Urobilinogen - Negative Bedside Urine Nitrite - Negative Bedside Urine Leukocytes - Negative Esterase MDM Narrative Medical decision making narrative: Vital signs, nurse triage note, medication list, previous ER visits, and all imaging studies reviewed. UA reviewed showing no acute process. Differential diagnosis includes UTI hyperglycemia electrolyte derangement. DC home keep hydrated return with new or worsening symptoms. Discharge Plan Departure Patient Disposition: Home Clinical Impression: Dysuria Instructions: DI for Dysuria -- Adult Activity Restrictions/Additional Instructions: Return with new or worsening symptoms. Keep hydrated. Follow up PCP next week if no improvement in symptoms. Prescriptions: No Action lamotrigine 150 MG tablet 150 mg PO BID 90 Days Qty: 0 3RF nystatin 100,000 unit/gram powder 1 applictn TOP BID Qty: 30 2RF doxycycline hyclate 100 mg capsule 100 mg PO BID MDD 200mg Qty: 20 0RF Referrals: ProviderDinah [Primary Care Provider, Family Practice] Stand Alone Forms: Patient Portal/API
[2024-07-24 16:06] VITALS: BP 128/59; PULSE 98; RESP 16; O2SAT 96
== END 2024-07-24 16:26 | disposition home or self-care (01) ==
PROVIDERS: Emergency Provider Family Medicine
DX: R30.0 Dysuria (principal); E11.9 Type 2 diabetes mellitus without complications
CPT/HCPCS: 81003; 82962; 99282